=== PATIENT | female | born 1985 | race Caucasian/White ===

== ENCOUNTER → 2021-04-13 12:54 | Outpatient (CLI) | payer OTHER, SELFPAY ==
[2021-04-13 14:01] LABS: Progesterone Level 21.53 ng/mL (See Comment)
== END ==
LOC: MTLAB 13:00 → PAVLAB 13:24
DX: Z13.29 Encounter for screening for other suspected endocrine disorder (principal)
CPT/HCPCS: 36415; 84144

== ENCOUNTER → 2021-04-26 11:19 | Outpatient (CLI) | payer OTHER, SELFPAY ==
[2021-04-26 13:16] LABS: hCG Titer Quant., Serum 4322 mIU/mL (1-3)
== END ==
DX: Z32.00 Encounter for pregnancy test, result unknown (principal)
CPT/HCPCS: 36415; 84702

== ENCOUNTER 2021-05-20 19:25 | Emergency (ER) | payer OTHER, SELFPAY ==
[2021-05-20 19:26] VITALS: BP 130/87; PULSE 88; RESP 18; TEMP 36.6; O2SAT 100; BMI 27.3
[2021-05-20 20:11] LABS: Bacteria 0 SEEN /hpf (None Seen); Mucous, Urine 0 SEEN /hpf (<or=2+); Red Blood Cells-Urine 0 SEEN /hpf (0-5); White Blood Cells 0 SEEN /hpf (0-5)
[2021-05-20 20:13] LABS: Color, Urine Amber (Yellow); Glucose, Dipstick Normal (Normal); Leukocyte Esterase-Dipstick Negative /ul (Negative); Nitrite-Dipstick Negative (Negative); Occult Blood-Urine 10 /ul (Negative); Protein-Dipstick 30 mg/dl (Negative); Urine Clarity Clear (Clear); Urine Urobilinogen 8 mg/dl (Normal)
[2021-05-20 20:14] LABS: Urine Bilirubin Dipstick 3 mg/dL (Negative)
[2021-05-20 20:15] LABS: Ketone-Dipstick 150 mg/dl (Negative)
[2021-05-20 20:35] LABS: Squamous Epithelial Cells - UA 5-10 SEEN /hpf (5-10)
[2021-05-20] MEDS: Metoclopramide 10 MG/2 ML Vial 5 MG IV (21:19)
[2021-05-20] MEDS: 0.9% Normal Saline 1,000 ML 1000 ML IV (21:19)
[2021-05-20 21:45] LABS: Anion Gap 8 (5-15); BUN 8 mg/dL (7-18); BUN/Creat Ratio 10.6 RATIO (10-20); Chloride 104 mmol/L (98-107); Creatinine, Serum 0.76 mg/dL (0.55-1.02); EST Glomerular Filtration Rate 92 mL/min (>60); Est Glom Filt Rate - Afr Amer 111 mL/min (>60); Estimated Creatinine Clearance 99.51 ml/min; Glucose 90 mg/dL (74-106); Potassium 4.3 mmol/L (3.5-5.1); Sodium Level 136 mmol/L (136-145)
--- NOTE | 2021-05-20 21:54 | EX.ED.DYSGE1 ---
HPI History of Present Illness Chief Complaint: Nausea/Vomiting Informant: patient Narrative Narrative: with additional 2 adopted kids 9 weeks gestation by ultrasound presents for increasing nausea and vomiting. Has been vomiting for the last 4 weeks. Followed by OB at the [facility] Dr. Cisneros. Patient is on Bonjesta twice a day, was given oral Reglan recently or Phenergan with no relief. Unable to eat to keep things down. Denies hematemesis. Denies diarrhea. Denies abdominal pain. States decreased urine output. States other pregnancies were not as significant as this 1. Denies any vaginal discharge or bleeding. PFSH PFSH Medical History no medical history Allergy/AdvReac Type Severity Reaction Status Date / Time Sulfa (Sulfonamide Allergy PT UNSURE Verified 05/20/21 19:28 Antibiotics) OF REACTION Social History Smoking Status: Never smoker ROS ROS ED Constitutional Constitutional ED: Denies chills, fever(s) or sweats Eyes Eyes: Denies change in vision ENT ENT ED: Denies dysphagia or sore throat Cardiovascular Cardiovascular: Denies chest pain, leg edema, palpitations or racing heartbeat Respiratory/Chest Respiratory/Chest: Denies cough, dyspnea or dyspnea on exertion Gastrointestinal Gastrointestinal: Reports nausea and vomiting; Denies abdominal pain or diarrhea Genitourinary Genitourinary ED: Denies dysuria, hematuria or urinary frequency Musculoskeletal Musculoskeletal: Denies back pain, extremity pain or neck pain Integumentary Denies rash or wounds Neurologic Neurologic: Denies headache(s), paresthesias or weakness EXAM Physical Exam Const Vital Signs: 05/20/21 19:26 05/20/21 22:26 Temperature 97.9 F Temperature Source Temporal Pulse Rate 88 84 Respiratory Rate 18 16 Blood Pressure 130/87 H 122/81 H Blood Pressure Mean 101 94 Pulse Ox 100 100 Oxygen Delivery Method Room Air Room Air Positive well nourished and well developed General Appearance ED: well developed and NAD HEENT Reports dry mucous membranes normocephalic and atraumatic Mouth ED: Yes dry mucous membranes Mouth: dry mucous membranes Eyes PERRL, EOMs intact bilaterally and conjunctivae normal General Eye ED: Yes normal appearance of both eyes Neck no lymphadenopathy and supple General: Negative for tenderness Chest Wall Chest: Negative for tenderness Resp normal respiratory effort and normal air movement Effort and Inspection: symmetric chest movement; Negative for respiratory distress Cardio regular rate, regular rhythm and no murmurs Peripheral Pulses: pulses 2+ throughout GI normal to inspection, nondistended, normoactive bowel sounds and non-tender Palpation: Negative for guarding or rebound tenderness present Back/Spine no CVA tenderness and no thoracic nor lumbar tenderness Extremity normal to inspection General Extremety ED: Negative for edema or tenderness General Extremity: Negative for edema Neuro oriented x3 and no sensory deficits noted Sensorium / Orientation: awake and alert Skin no rashes or lesions noted and no wounds MDM MDM MDM Narrative Medical decision making narrative: Patient dry mucosal membranes. Urine notes ketones. She is ordered for 2 L of normal saline IV Reglan was given. Electrolytes and renal function normal. Reevaluation improved he was able tolerate p.o. intake. She has current medications at home with multiple antiemetics. She will continue to try this, she will call her OB. Return precautions discussed. Patient is being discharged under pandemic conditions under declared global, national and state disaster activation, with limited medical resources. Patient and community understands this. Results discussed in layman's terms to the patient satisfaction. All questions answered in layman's terms. Patient understands importance of follow-up care as directed. Patient has been instructed to return to the ED immediately if new symptoms, problems, or questions occur. We mutually agree with the plan of disposition. The patient understand that they may call or return with any questions or concerns at any time. Lab Data Attestation: I reviewed the patient's lab results. Labs: Laboratory Results - last 24 hr 05/20/21 05/20/21 19:55 20:07 Sodium 136 Potassium 4.3 Chloride 104 Carbon Dioxide 24.0 Anion Gap 8 BUN 8 Creatinine 0.76 Estim Creat Clear Calc 99.51 Est GFR (MDRD) Af Amer 111 Est GFR (MDRD) Non-Af 92 BUN/Creatinine Ratio 10.6 Glucose 90 Calcium 9.0 Urine Color [place] Urine Clarity Clear Urine pH 5.0 Ur Specific [place] 1.030 Urine Protein 30 H Urine Glucose (UA) Normal Urine Ketones 150 A* Urine Occult Blood 10 H Urine Nitrite Negative Urine Bilirubin 3 H Urine Urobilinogen 8 H Ur Leukocyte Esterase Negative Urine RBC 0 SEEN Urine WBC 0 SEEN Ur Squamous Epith Cells 5-10 SEEN Urine Bacteria 0 SEEN Urine Mucus 0 SEEN Discharge Plan Triage Chief Complaint: Nausea/Vomiting ED Provider: Mychal Mortensen Dx/Rx/DC Orders Clinical Impression: Hyperemesis gravidarum, Instructions: ED Hyperemesis Gravidarum Primary Care Provider: Vanessa Roberson,Out of Referrals: Vanessa Doctor,Out of [Primary Care Provider] - Activity Restrictions/Additional Instructions: Continue oral fluids at home. Take your medications as prescribed. Follow-up with your OB doctor. Disposition Disposition: Home, Self Care Discharge Date/Time: 05/20/21 23:24
[2021-05-20 22:26] VITALS: BP 122/81; PULSE 84; RESP 16; O2SAT 100
== END 2021-05-20 23:24 | disposition home or self-care (01) ==
PROVIDERS: Emergency Provider Emergency Medicine; Visit Provider Emergency Medicine
DX: O21.0 Mild hyperemesis gravidarum (principal); Z3A.09 9 weeks gestation of pregnancy
CPT/HCPCS: 80048; 81001; 96361; 96374; 99282; J7030; A4216

== ENCOUNTER 2021-05-22 13:00 | Emergency (ER) | payer OTHER, SELFPAY ==
--- NOTE | 2021-05-22 17:30 | EDS_ITS ---
DATE OF SERVICE 05/22/21 CHIEF COMPLAINT: Nausea and vomiting. HISTORY OF PRESENT ILLNESS: The patient is a 36-year-old female, G3, P2, 9 weeks with hyperemesis. The patient was seen in the ER on the . At that time, she was given Reglan. She was able to tolerate ice chips in the ER. The patient states that she started to vomit as soon as she went home. She is currently on Bonjesta and Phenergan at home without improvement. She states that her [employer] doctor wanted her admitted if not improved this weekend. The patient denies fevers or chills. PHYSICAL EXAMINATION: GENERAL: The patient is lying in bed in no acute distress. VITAL SIGNS: Blood pressure 122/89, temperature 97.9, heart rate 93, respiratory rate 16, pulse ox 100% on room air. HEENT: Dry mucous membranes. LUNGS: Clear. HEART: Regular rate and rhythm. ABDOMEN: Soft with mild epigastric tenderness. No guarding or rebound. Hypoactive, but present bowel sounds are noted. DIAGNOSTIC DATA: CBC and chemistry studies significant for bicarb of 17. Urinalysis shows 150 ketones. EMERGENCY DEPARTMENT COURSE AND MEDICAL DECISION MAKING: The patient was given 1 liter IV fluids followed by 150/hr. She is given Reglan and Benadryl IV. IMPRESSION: Vomiting in . DISPOSITION/PLAN: The patient was not sure if she wanted transferred back to [facility] where her [employer] is located, or to stay here locally. I spoke with our on-call doctor, who thought it would be in her best interest to go back to her physician as they know what medications have already been tried on her. I spoke with the patient's [employer], Dr. Cisneros, and the patient has been accepted in transfer to [facility]. At this time, we are awaiting bed assignment.
[2021-05-22 20:28] LABS: Mucous, Urine 0 SEEN /hpf (<or=2+); Red Blood Cells-Urine 0 SEEN /hpf (0-5); Squamous Epithelial Cells - UA 0 SEEN /hpf (5-10); White Blood Cells 0 SEEN /hpf (0-5)
[2021-05-22 21:05] LABS: Absolute Lymphocyte Count 1.14 X10^3/uL (0.83-4.51); Absolute Neutrophil Count 5.9 X10^3/uL (2.0-7.7); Basophil# 0.02 X10^3/uL; Basophil% 0.3 % (0-1); Eosinophil# 0.03 X10^3/uL; Eosinophils% 0.4 % (0-5); Hematocrit 42.3 % (37-47); Hemoglobin 15.2 g/dL (12.0-15.0); Lymphocyte # 1.14 X10^3/ul (0.83-4.51); Lymphocyte % 15.4 % (19-41); Mean Corp Hgb Conc 35.9 g/dL (32-36); Mean Corpuscular Hgb 32.3 pg (27.0-32.0); Mean Corpuscular Volume 89.8 fL (81-99); Mean Platelet Vol. 11.1 fl (6.2-12.0); Monocyte# 0.32 X10^3/uL; Monocyte% 4.3 % (0-10); NRBC Flagged by Analyzer 0 % (0-5); Neutrophil # 5.85 X10^3/uL (2.7-7.7); Neutrophil % 79.3 % (47-70); Platelet Count 203 K/mm3 (150-450); RBC Distribution Width CV 11.7 % (11.6-14.6); RBC Distribution Width SD 38.3 fl (35.1-43.9); Red Blood Count 4.71 M/mm3 (4.2-5.4); White Blood Count 7.4 K/mm3 (4.4-11.0)
[2021-05-23 02:06] LABS: Anion Gap 11 (5-15); BUN 7 mg/dL (7-18); BUN/Creat Ratio 10.4 RATIO (10-20); Calcium,Total 8.4 mg/dL (8.5-10.1); Chloride 107 mmol/L (98-107); Creatinine, Serum 0.67 mg/dL (0.55-1.02); EST Glomerular Filtration Rate 105 mL/min (>60); Est Glom Filt Rate - Afr Amer 127 mL/min (>60); Glucose 85 mg/dL (74-106); Sodium Level 135 mmol/L (136-145)
[2021-05-23 09:03] LABS: Bacteria 1+ /hpf (None Seen); Color, Urine Yellow (Yellow); Glucose, Dipstick NEGATIVE (Normal); Ketone-Dipstick 150 mg/dl (Negative); Leukocyte Esterase-Dipstick Negative /ul (Negative); Nitrite-Dipstick Negative (Negative); Occult Blood-Urine Negative /ul (Negative); Protein-Dipstick 30 mg/dl (Negative); Urine Bilirubin Dipstick Negative (Negative); Urine Clarity Clear (Clear); Urine Urobilinogen 4 mg/dl (Normal)
== END 2021-05-22 18:00 | disposition short-term general hospital (02) ==
LOC: ED 05-25 06:58
PROVIDERS: Emergency Provider Emergency Medicine; Referring Provider Emergency Medicine; Visit Provider Emergency Medicine
DX: O21.0 Mild hyperemesis gravidarum (principal); Z3A.09 9 weeks gestation of pregnancy
CPT/HCPCS: 80048; 81001; 85025; 96361; 96374; 96375; 99285